=== PATIENT | female | born 1940 | race Two or more races ===

== ENCOUNTER 2020-01-19 16:08 | Emergency (ER) | payer SELFPAY ==
[2020-01-19] MEDS ORDERED: Sodium Chloride 0.9% 1,000 ML IV ONE (16:26)
[2020-01-19] MEDS ORDERED: Sodium Chloride 0.9% 2.5 ML Syringe FLUSH PRN (16:26)
[2020-01-19] MEDS ORDERED: Sodium Chloride 0.9% 10 ML Syringe FLUSH PRN (16:26)
[2020-01-19 17:24] LABS: BLOOD UREA NITROGEN,BUN 9 mg/dL (7.0-18.0); CARBON DIOXIDE,CO2 23.7 mmol/L (21.0-32.0); CHLORIDE,CL 102 mmol/L (98-107); GLUCOSE RANDOM 281 mg/dL (74-106); POTASSIUM,K 4.3 mmol/L (3.5-5.1); SODIUM,NA 135 mmol/L (136-145)
--- NOTE | 2020-01-19 18:23 | EDM.PDOC ---
ED HPI GENERAL MEDICAL PROBLEM - General Chief Complaint: Diabetic Complaint Stated Complaint: HIGH BLOOD SUGAR Time Seen by Provider: 01/19/20 16:23 Source of Information: Reports: Patient - History of Present Illness INITIAL COMMENTS - FREE TEXT/NARRATIVE: History of present illness: 79-year-old female presenting with elevated glucose levels, mild headache, dry mouth, chronic leg pain bilaterally and occasional nausea. No chest pain, cough, difficulty breathing, fevers or any other symptoms. She recently moved here from [place] and has no primary care. She has a history of diabetes. She takes metformin 500 mg twice daily and 2 other medications. She reports that in the last 3 or 4 days her glucoses have been in the 590 to 380 range. Review of systems: As per history of present illness and below otherwise all systems reviewed and negative. Past medical history: As per history of present illness and as reviewed below otherwise noncontributory. Diabetes type 2 Surgical history: As per history of present illness and as reviewed below otherwise noncontributory. Social history: No reported history of drug or alcohol abuse. No tobacco Family history: As per history of present illness and as reviewed below otherwise noncontributory. Physical exam: GEN: no acute distress, well appearing HEENT: Atraumatic, normocephalic, mucous membranes moist, Neck: supple, nontender, trachea midline. Lungs: No respiratory distress. Heart: RRR Abdomen: Soft, nondistended, nontender. Back: nontender Extremities: Atraumatic. Mild diffuse lower extremity pain without swelling. No edema. Located in all areas of the legs including calf, gilman, feet. Neurovascularly intact. Neuro: Awake, alert, oriented. Neuro Exam nonfocal. Skin: warm, dry, no lesions Diagnostics: [] Therapeutics: [] MDM: Impression: [] Plan: [] Definitive disposition and diagnosis as appropriate pending reevaluation and review of above. headache Pain Score (Numeric/FACES): 6 - Related Data Allergies Allergy/AdvReac Type Severity Reaction Status Date / Time No Known Allergies Allergy Verified 01/19/20 16:19 Home Meds: Home Meds metFORMIN [Glucophage] 500 mg PO BIDMEALS #30 tab 01/19/20 [Rx] Past Medical History HEENT History: Reports: None Cardiovascular History: Reports: None Respiratory History: Reports: None Gastrointestinal History: Reports: Gastritis, GERD Genitourinary History: Reports: None MANAGER CREDIT RISK History: Reports: None Musculoskeletal History: Reports: None Neurological History: Reports: None Psychiatric History: Reports: None Endocrine/Metabolic History: Reports: Diabetes, Type II Hematologic History: Reports: None Immunologic History: Reports: None Oncologic (Cancer) History: Reports: None Dermatologic History: Reports: None - Infectious Disease History Infectious Disease History: Reports: None - Past Surgical History Head Surgeries/Procedures: Reports: None HEENT Surgical History: Reports: None Cardiovascular Surgical History: Reports: None Respiratory Surgical History: Reports: None GI Surgical History: Reports: None Female Surgical History: Reports: None Endocrine Surgical History: Reports: None Neurological Surgical History: Reports: None Musculoskeletal Surgical History: Reports: None Oncologic Surgical History: Reports: None Dermatological Surgical History: Reports: None Social & Family History - Family History Family Medical History: Noncontributory - Tobacco Use Smoking Status *Q: Never Smoker Second Hand Smoke Exposure: No - Caffeine Use Caffeine Use: Reports: None - Recreational Drug Use Recreational Drug Use: No ED ROS GENERAL - Review of Systems Review Of Systems: See Below (See HPI) ED EXAM GENERAL NO PERIP PULSE - Physical Exam Exam: See Below (See HPI) Course - Vital Signs Text/Narrative:: Patient with elevated glucose levels, in the 300- 500s over the last few days. Otherwise well-appearing. Glucose today in 200s. Does have some glucose leak in the urine but no signs of urinary infection. Already on metformin, glimepride and other medications. Takes 500 twice daily. Initial plan to temporarily raise to 1000 in the morning and 500 at night till she can been seen by a local primary care doctor here. However later patient reported that her PCP from [place] had changed her glimepride (increased it) yesterday - therefore, will instead go with PCP recommendations, continue the higher dose of glimepride as she has had improvement in glucose level since yesterday, and followup with local PCP since she lives here now. She agrees with this plan. Last Recorded V/S: Last Vital Signs Temp 96.5 F L 01/19/20 20:40 Pulse 63 01/19/20 20:40 Resp 18 01/19/20 20:40 BP 140/71 01/19/20 20:40 Pulse Ox 100 01/19/20 20:40 - Orders/Labs/Meds Orders: Active Orders 24 hr Category Date Time Status Saline Lock Insert [OM.PC] Stat Oth 01/19/20 16:26 Ordered Labs: Laboratory Tests 01/19/20 01/19/20 01/19/20 Range/Units 16:25 16:25 16:25 WBC 6.45 (4.0-11.0) K/uL RBC 4.66 (4.30-5.90) M/uL Hgb 14.2 (12.0-16.0) g/dL Hct 42.9 (36.0-46.0) % MCV 92.1 (80.0-98.0) fL MCH 30.5 (27.0-32.0) pg MCHC 33.1 (31.0-37.0) g/dL RDW Std Deviation 46.9 (28.0-62.0) fl RDW Coeff of Tracey 14 (11.0-15.0) % Plt Count 194 (150-400) K/uL MPV 11.10 (7.40-12.00) fL Neut % (Auto) 57.9 (48.0-80.0) % Lymph % (Auto) 30.5 (16.0-40.0) % [place] % (Auto) 8.5 (0.0-15.0) % Eos % (Auto) 2.8 (0.0-7.0) % Baso % (Auto) 0.3 (0.0-1.5) % Neut # (Auto) 3.7 (1.4-5.7) K/uL Lymph # (Auto) 2.0 (0.6-2.4) K/uL [place] # (Auto) 0.6 (0.0-0.8) K/uL Eos # (Auto) 0.2 (0.0-0.7) K/uL Baso # (Auto) 0.0 (0.0-0.1) K/uL Nucleated RBC % 0.0 /100WBC Nucleated RBCs # 0 K/uL Sodium 135 L (136-145) mmol/L Potassium 4.3 (3.5-5.1) mmol/L Chloride 102 (98-107) mmol/L Carbon Dioxide 23.7 (21.0-32.0) mmol/L BUN 9 (7.0-18.0) mg/dL Creatinine 0.8 (0.6-1.0) mg/dL Est Cr Clr Drug Dosing 42.30 mL/min Estimated GFR (MDRD) > 60.0 ml/min Glucose 281 H (74-106) mg/dL POC Glucose 256 H (60-110) mg/dL Calcium 9.2 (8.5-10.1) mg/dL Total Bilirubin 0.3 (0.2-1.0) mg/dL AST 27 (15-37) IU/L ALT 26 (14-63) IU/L Alkaline Phosphatase 98 (46-116) U/L Total Protein 7.7 (6.4-8.2) g/dL Albumin 3.6 (3.4-5.0) g/dL Globulin 4.1 H (2.6-4.0) g/dL Albumin/Globulin Ratio 0.9 (0.9-1.6) Urine Color Urine Appearance Urine pH (5.0-8.0) Ur Specific [place] (1.001-1.035) Urine Protein (NEGATIVE) mg/dL Urine Glucose (UA) (NEGATIVE) mg/dL Urine Ketones (NEGATIVE) mg/dL Urine Occult Blood (NEGATIVE) Urine Nitrite (NEGATIVE) Urine Bilirubin (NEGATIVE) Urine Urobilinogen (<2.0) EU/dL Ur Leukocyte Esterase (NEGATIVE) 01/19/20 Range/Units 19:24 WBC (4.0-11.0) K/uL RBC (4.30-5.90) M/uL Hgb (12.0-16.0) g/dL Hct (36.0-46.0) % MCV (80.0-98.0) fL MCH (27.0-32.0) pg MCHC (31.0-37.0) g/dL RDW Std Deviation (28.0-62.0) fl RDW Coeff of Tracey (11.0-15.0) % Plt Count (150-400) K/uL MPV (7.40-12.00) fL Neut % (Auto) (48.0-80.0) % Lymph % (Auto) (16.0-40.0) % [place] % (Auto) (0.0-15.0) % Eos % (Auto) (0.0-7.0) % Baso % (Auto) (0.0-1.5) % Neut # (Auto) (1.4-5.7) K/uL Lymph # (Auto) (0.6-2.4) K/uL [place] # (Auto) (0.0-0.8) K/uL Eos # (Auto) (0.0-0.7) K/uL Baso # (Auto) (0.0-0.1) K/uL Nucleated RBC % /100WBC Nucleated RBCs # K/uL Sodium (136-145) mmol/L Potassium (3.5-5.1) mmol/L Chloride (98-107) mmol/L Carbon Dioxide (21.0-32.0) mmol/L BUN (7.0-18.0) mg/dL Creatinine (0.6-1.0) mg/dL Est Cr Clr Drug Dosing mL/min Estimated GFR (MDRD) ml/min Glucose (74-106) mg/dL POC Glucose (60-110) mg/dL Calcium (8.5-10.1) mg/dL Total Bilirubin (0.2-1.0) mg/dL AST (15-37) IU/L ALT (14-63) IU/L Alkaline Phosphatase (46-116) U/L Total Protein (6.4-8.2) g/dL Albumin (3.4-5.0) g/dL Globulin (2.6-4.0) g/dL Albumin/Globulin Ratio (0.9-1.6) Urine Color YELLOW Urine Appearance CLEAR Urine pH 5.0 (5.0-8.0) Ur Specific [place] <= 1.005 (1.001-1.035) Urine Protein NEGATIVE (NEGATIVE) mg/dL Urine Glucose (UA) 500 H (NEGATIVE) mg/dL Urine Ketones NEGATIVE (NEGATIVE) mg/dL Urine Occult Blood NEGATIVE (NEGATIVE) Urine Nitrite NEGATIVE (NEGATIVE) Urine Bilirubin NEGATIVE (NEGATIVE) Urine Urobilinogen 0.2 (<2.0) EU/dL Ur Leukocyte Esterase NEGATIVE (NEGATIVE) Meds: Medications Discontinued Medications Generic Name Dose Route Start Last Admin Trade Name Freq PRN Reason Stop Dose Admin Sodium Chloride 1,000 mls @ 999 mls/hr 01/19/20 16:26 01/19/20 16:31 Normal Saline IV 01/19/20 17:26 999 mls/hr .Bolus ONE Administration Sodium Chloride 10 ml 01/19/20 16:26 Saline Flush FLUSH ASDIRECTED PRN Keep Vein Open Sodium Chloride 2.5 ml 01/19/20 16:26 Saline Flush FLUSH ASDIRECTED PRN Keep Vein Open - Re-Assessments/Exams Free Text/Narrative Re-Assessment/Exam: 01/19/20 20:05 Evaluated the patient. She is resting comfortably and in no acute distress. I discussed with the patient plan of care including increasing her metformin dose. She now reports that her primary care doctor based in [place] directed her yesterday to increase her glimepiride from 2 mg p.o. twice daily to 4 mg p.o. twice daily and she just started that yesterday. This would explain her improvement in glucose today compared to prior days. Therefore though I had planned to have her increase her metformin dose, I discussed clearly and at length with the patient to continue the 500 mg twice daily dosing of her metformin, go ahead with PCP's recommendation for increased glimepride, and continue to monitor her glucose having increased the glimepiride. She voiced understanding of this on several occasions. Departure - Departure Time of Disposition: 19:51 Disposition: Home, Self-Care 01 Clinical Impression: Hyperglycemia Diabetic neuropathy Qualifiers: Diabetes mellitus type: type 2 - Discharge Information Prescriptions: metFORMIN [Glucophage] 500 mg PO BIDMEALS #30 tab Instructions: Hyperglycemia, Hyperglycemia, [id number], Type 2 Diabetes Mellitus, Diagnosis, Adult, [id number], Blood Glucose Monitoring, Adult, Basic Metabolic Panel Referrals: PCP,None [Primary Care Provider] - Forms: ED Department Discharge Additional Instructions: You have diabetes. Your glucose level was elevated. Please continue taking the metformin 500 mg twice a day. As your doctor directed you to, please continue to take the glimepiride 4 mg twice a day instead of the 2 mg you were taking b efore. Please follow-up with 1 of the primary care physicians at the clinics listed below as soon as possible to continue to modify her medication dosing. Continue to check your glucose levels daily. Return to the ER if your glucose levels worsen. Plenty of fluids. Minimize carbohydrates and sugar intake. The following information is given to patients seen in the emergency department who are being discharged to home. This information is to outline your options for follow-up care. We provide all patients seen in our emergency department with a follow-up referral. The need for follow-up, as well as the timing and circumstances, are variable depending upon the specifics of your emergency department visit. If you don't have a primary care physician on staff, we will provide you with a referral. We always advise you to contact your personal physician following an emergency department visit to inform them of the circumstance of the visit and for follow-up with them and/or the need for any referrals to a consulting specialist. The emergency department will also refer you to a specialist when appropriate. This referral assures that you have the opportunity for follow-up care with a specialist. All of these measure are taken in an effort to provide you with optimal care, which includes your follow-up. Under all circumstances we always encourage you to contact your private james longian who remains a resource for coordinating your care. When calling for follow-up care, please make the office aware that this follow-up is from your recent emergency room visit. If for any reason you are refused follow-up, please contact the [facility] Emergency Department at and asked to speak to the emergency department charge nurse. [facility] [address] [place] [address] [address] Sepsis Event Note (ED) - Evaluation Sepsis Screening Result: No Definite Risk - Focused Exam Vital Signs: Vital Signs Temp Pulse Resp BP Pulse Ox 01/19/20 20:40 96.5 F L 63 18 140/71 100 - My Orders Last 24 Hours: My Active Orders 01/19/20 16:26 Saline Lock Insert [OM.PC] Stat - Assessment/Plan Last 24 Hours: My Active Orders 01/19/20 16:26 Saline Lock Insert [OM.PC] Stat
== END 2020-01-19 20:43 | disposition home or self-care (01) ==
LOC: EDBD 16:08 → MW.ED 16:08
DX: E11.65 Type 2 diabetes mellitus with hyperglycemia (principal); Z79.84 Long term (current) use of oral hypoglycemic drugs
CPT/HCPCS: 36415; 80053; 81003; 82962; 85025; 93005; 96360; 96361; 99285; J7030; 99283